=== PATIENT | female | born 1960 | race Caucasian/White ===

== ENCOUNTER → 2017-04-13 | Outpatient (CLI) | payer OTHER | LOC: FIMAGING 15:43 | PROVIDERS: ATTEND Obstetrics & Gynecology Gynecology | DX: Z12.31 Encounter for screening mammogram for malignant neoplasm of breast (principal); Z80.3 Family history of malignant neoplasm of breast | CPT/HCPCS: G0202 ==

== ENCOUNTER 2018-09-22 07:15 | Observation (INO) | payer OTHER ==
[2018-09-15 14:36] LABS: PLATELET COUNT 220 10^3/uL (150-400)
--- NOTE | 2018-09-22 07:04 | PDHPUP ---
History & Physical Update H&P update statement: This history and physical update is based on an assessment of the patient which was completed after admission or registration (within 24 hours), but prior to the surgery/procedure. H&P update: H&P reviewed & patient examined, no change in patient's condition since H&P completed
[~2018-09-22 07:15] MED LIST: ROPIVACAINE 0.2% 80 MG, EPINEPHrine 0.2 MG, KETOROLAC TROMETHAMINE 30 MG in SYRINGE 0 ML IU ONE; TRANEXAMIC ACID 3,000 MG in NS (SYRINGE) 50 ML IRR ONE
[2018-09-22] MEDS ORDERED: TRANEXAMIC ACID 3,000 MG/50 ML BAG IRR ONE (10:43)
[2018-09-22] MEDS ORDERED: VANCOMYCIN 1 GM VIAL ONE (10:43)
[2018-09-22] MEDS ORDERED: ACETAMINOPHEN 325 MG TAB PO ONE (11:59)
[2018-09-22] MEDS ORDERED: DEXAMETHASONE 4 MG/ML VIAL IVP ONE (11:59)
[2018-09-22] MEDS ORDERED: FAMOTIDINE 20 MG TAB PO ONE (11:59)
[2018-09-22] MEDS ORDERED: ceFAZolin 2 GM/DEXTROSE 100 ML IV ONE (11:59)
[2018-09-22] MEDS ORDERED: LIDOCAINE 1% 2 ML INJ ID PRN (12:01)
[2018-09-22] MEDS ORDERED: LR 1,000 ML IV ONE (12:01)
--- NOTE | 2018-09-22 12:48 | PDANEPAE ---
ANE History of Present Illness right TKA revision ANE Past Medical History - Cardiovascular History Hx Hypertension: Yes Hx Arrhythmias: No Hx Chest Pain: No Hx Coronary Artery / Peripheral Vascular Disease: No Hx CHF / Valvular Disease: No Hx Palpitations: No Cardiovascular History Comment: takes statin - Pulmonary History Hx COPD: No Hx Asthma/Reactive Airway Disease: Yes Hx Recent Upper Respiratory Infection: No Hx Oxygen in Use at Home: No Hx Sleep Apnea: Yes Sleep Apnea Screening Result - Last Documented: Positive Pulmonary History Comment: cpap nightly, RAD well controlled, sleeps soundly - very hard to wake up - Neurologic History Hx Cerebrovascular Accident: No Hx Seizures: No Hx Dementia: No - Endocrine History Hx Diabetes: Yes Endocrine History Comment: hypothyroid - Renal History Hx Renal Disorders: No - Liver History Hx Hepatic Disorders: No - Neurological & Psychiatric Hx Neurological / Psychiatric History Comment: depression med for chronic pain and depression, hx of suicidal depression 07/2008-12/2008 - Cancer History Hx Cancer: Yes Cancer History Comment: cervical squamous cell insitu - Congenital Disorder History Hx Congenital Disorders: No - GI History Hx Gastrointestinal Disorders: Yes Gastrointestinal History Comment: IBS, post jameson diarrhea,. hx fissures, thrombosed hemorrhoid, - Other Health History Other Health History: osteo arthritis,. 2017 fall, tx'd for hip /pelvic rotation - Chronic Pain History Chronic Pain: Yes (right leg) - Surgical History Prior Surgeries: 1976 D&C, 1993 lap jameson, 1996 D&C for squamous cell cancer insitu, 1998 LACEI/BSO/A & P repair, 2006 right knee scope, 2007 right partial knee replacement, 09/2008 manipulation right knee ANE Review of Systems Review of systems is: negative Review of Systems: - Exercise capacity METS (RN): 4 METS ANE Patient History - Allergies Allergies/Adverse Reactions: No Known Allergies Allergy (Unverified 09/15/18 09:12) - Home Medications Home medications: home medication list seen and reviewed Home Medications: Amitriptyline HCl [Elavil 10 mg (*)] 10 mg PO HS 09/15/18 [Last Taken 09/21/18 21:30] Atorvastatin Calcium [Lipitor 10 mg (*)] 10 mg PO HS 09/15/18 [Last Taken 21:30] Azelaic Acid [Finacea] 1 daya TP DAILY 09/15/18 [Last Taken 08/14/18] Beta-Carotene(A) W-C & E/Min [Ocuvite] 1 tab PO DAILY 09/15/18 [Last Taken 09/08] Doxycycline Hyclate [Vibramycin 100 MG (*)] 100 mg PO DAILY 09/15/18 [Last Taken 09/22/18 09:00] Estradiol [Estradiol 0.5 MG (RX)] 0.25 mg PO DAILY 09/15/18 [Last Taken 09/15/18 ] Gabapentin [Neurontin 300 MG (*)] 300 mg PO TID 09/15/18 [Last Taken 09/22/18 09 :00] Herbals/Supplements -Info Only 1 ea PO DAILY 09/15/18 [Last Taken 09/08/18] Hyoscyamine Sulfate [Hyomax-Sr 0.375 mg (*)] 0.375 - 0.75 mg PO DAILY 09/15/18 [ Last Taken 09/22/18 07:00] Levothyroxine [Synthroid 100 mcg (*)] 100 mcg PO DAILY06 09/15/18 [Last Taken 07:00] Multivitamins [Multivitamin (*)] 1 each PO DAILY 09/15/18 [Last Taken 09/08/18] Naproxen Sodium [Aleve 220 MG (*)] 220 mg PO HS PRN 09/15/18 [Last Taken ] Naproxen Sodium [Aleve 220 MG (*)] 440 mg PO DAILY 09/15/18 [Last Taken 09/04/18 ] Nebivolol HCl [Bystolic 5 mg (*)] 5 mg PO HS 09/15/18 [Last Taken 09/21/18 21:30 ] Dumas-3 Fatty Acids [Fish Oil 1000 mg (*)] 1,000 mg PO DAILY 09/15/18 [Last Taken 09/08/18] Omeprazole 20 mg PO DAILY PRN 09/15/18 [Last Taken 09/22/18 09:00] Ranitidine HCl 150 mg PO DAILY 09/15/18 [Last Taken 09/22/18 09:00] Zolpidem Tartrate [Ambien 5MG (*)] 5 mg PO HS PRN 09/15/18 [Last Taken 09/21/18 21:30] - NPO status NPO Since - Liquids (Date): 09/22/18 NPO Since - Liquids (Time): 11:00 NPO Since - Solids (Date): 09/21/18 NPO Since - Solids (Time): 17:30 - Anes Hx Anes Hx: no prior problems - Smoking Hx Smoking Status: Never smoked - Family Anes Hx Family Hx Anesthesia Complications: none ANE Labs/Vital Signs - Labs Result Diagrams: 09/15/18 14:24 - Vital Signs Blood Pressure: 135/86 Heart Rate: 73 Respiratory Rate: 16 O2 Sat (%): 93 Height: 160.66 cm Weight: 86.636 kg ANE Physical Exam - Airway Neck exam: FROM Mallampati Score: Class 2 Mouth exam: normal dental/mouth exam - Pulmonary Pulmonary: no respiratory distress - Cardiovascular Cardiovascular: regular rate and rhythym - ASA Status ASA Status: II ANE Anesthesia Plan Anesthesia Plan: spinal Regional Anesthesia: single shot NB, adductor canal FNB Urgent/Emergent Case: Eleazar resendez completed preop but documented later for safe timely pt care
[2018-09-22] MEDS ORDERED: PROPOFOL/EMULSION 500 MG/50 ML BOTTLE IV ONE ×2 (12:55→15:07)
[2018-09-22] MEDS ORDERED: LIDOCAINE 2% 5 ML SDV ONE (12:57)
[2018-09-22] MEDS ORDERED: MIDAZOLAM 2 MG/2 ML VIAL IVP ONE (14:06)
[2018-09-22] MEDS ORDERED: ROPIVACAINE HCL 150 MG/30 ML INJ ONE (14:09)
[2018-09-22] MEDS ORDERED: BUPIVACAINE/DEXTROSE 7.5MG/ML 2 ML SPINAL AMP SP ONE (14:09)
--- NOTE | 2018-09-22 14:12 | POSTANESTH ---
Post Anesthetic Evaluation Cardiovascular Status: Normal, Stable Respiratory Status: Normal, Stable Level of Consciousness/Mental Status: Can Participate in Eval, Alert and Oriented Pain Control: Adequate, Prn Tx Ordered Nausea/Vomiting Control: Adequate, Prn Tx Ordered Complications Possibly Related to Anesthesia: None Noted
[2018-09-22] MEDS ORDERED: NALOXONE HCL 0.4 MG/ML INJ IVP PRN (14:56)
[2018-09-22] MEDS ORDERED: fentaNYL 100 MCG/2 ML INJ IVP PRN (14:56)
[2018-09-22] MEDS ORDERED: ONDANSETRON 4 MG/2 ML VIAL IVP PRN ×2 (14:56→16:35)
[2018-09-22] MEDS ORDERED: ACETAMINOPHEN 500 MG TAB PO PRN (14:56)
[2018-09-22] MEDS ORDERED: LR 500 ML IV PRN (14:56)
[2018-09-22] MEDS ORDERED: HYDROmorphONE/DILAUDID 2 MG/ML INJ IVP PRN (14:56)
[2018-09-22] MEDS ORDERED: ALBUTEROL 3 ML DEYVIAL IH PRN (14:56)
[2018-09-22] MEDS ORDERED: oxyCODONE IR 5 MG TAB PO PRN (14:56)
[2018-09-22] MEDS ORDERED: fentaNYL 100 MCG/2 ML INJ ONE ×2 (15:03→16:33)
[2018-09-22] MEDS ORDERED: PROPOFOL 200 MG/20 ML VIAL ONE (15:59)
[2018-09-22] MEDS ORDERED: diphenhydrAMINE 25 MG CAP PO PRN (16:35)
[2018-09-22] MEDS ORDERED: POLYETHYLENE GLYCOL 3350 17 GM PKT PO PRN (16:35)
[2018-09-22] MEDS ORDERED: DIPHENOXYLATE/ATROPINE LOMOTIL 1 TAB PO PRN (16:35)
[2018-09-22] MEDS ORDERED: TEMAZEPAM 15 MG CAP PO PRN (16:35)
[2018-09-22] MEDS ORDERED: MAGNESIUM HYDROXIDE 30 ML UDCUP PO PRN (16:35)
[2018-09-22] MEDS ORDERED: ONDANSETRON DISINTEGRATING 4 MG TAB PO PRN (16:35)
[2018-09-22] MEDS ORDERED: PROMETHAZINE HCL 25 MG/ML INJ IVP PRN (16:35)
[2018-09-22] MEDS ORDERED: METOCLOPRAMIDE 10 MG/2 ML VIAL IVP PRN (16:35)
[2018-09-22] MEDS ORDERED: BISACODYL 10 MG SUPP PR PRN (16:35)
[2018-09-22] MEDS ORDERED: PROMETHAZINE HCL 25 MG SUPPR PR PRN (16:35)
[2018-09-22] MEDS ORDERED: LACTULOSE 20 GM/30 ML UDCUP PO PRN (16:35)
--- NOTE | 2018-09-22 16:35 | POSTOPPROG ---
Post Op Note Date of Operation: 09/22/18 Surgeon: [employer] Operator: felicia gama PA-C and Treva Fisher PA-C Anesthesiologist: dr. prado Anesthesia: Spinal, Other (Specify) (adductor canal block) Pre-op Diagnosis: painful right bicompartmental knee arthroplasty and broken tibial component Post-op Diagnosis: same Indication: Right knee pain and broken implant Procedure: R TKA, removed femoral and tibial components Findings: broken tibial plate Inf/Abcess present in the surg proc area at time of surgery?: No EBL: 50-100
[2018-09-22] MEDS ORDERED: ZOLPIDEM TARTRATE 5 MG TAB PO PRN (16:36)
[2018-09-22] MEDS ORDERED: HYDROmorphONE/DILAUDID 2 MG/ML INJ ONE (16:49)
[2018-09-22] MEDS ORDERED: HYDROCODONE/APAP 5/325 TAB ONE ×2 (16:53→17:41)
[2018-09-22] MEDS ORDERED: LR 1,000 ML IV SCH (17:00)
[2018-09-22] MEDS: HYDROCODONE/APAP 5/325 TAB PO PRN ×2 (17:11→17:43)
[2018-09-22] MEDS ORDERED: CEPACOL LOZENGE PO ONE ×2 (17:19→21:08)
[2018-09-22] MEDS: CYCLOBENZAPRINE 10 MG TAB PO PRN (18:13)
[2018-09-22] MEDS: ACETAMINOPHEN 325 MG TAB PO SCH ×2 (19:55→23:17)
[2018-09-22] MEDS: SENNOSIDES/DOCUSATE SODIUM TAB PO SCH (19:56)
[2018-09-22] MEDS: ASPIRIN 81 MG CHEWABLE TAB PO SCH (19:56)
[2018-09-22] MEDS ORDERED: NEBIVOLOL HCL 5 MG TAB PO SCH (21:00)
[2018-09-22] MEDS ORDERED: ATORVASTATIN CALCIUM 10 MG TAB PO SCH (21:00)
[2018-09-22] MEDS ORDERED: AMITRIPTYLINE HCL 10 MG TAB PO SCH (21:00)
[2018-09-22] MEDS: oxyCODONE IR 5 MG TAB PO PRN (22:18)
[2018-09-22] MEDS: GABAPENTIN 300 MG CAP PO SCH (22:18)
[2018-09-22] MEDS: ceFAZolin 2 GM/DEXTROSE 100 ML IV SCH (22:18)
[2018-09-23] MEDS: CYCLOBENZAPRINE 10 MG TAB PO PRN ×2 (04:18→12:08)
[2018-09-23] MEDS: oxyCODONE IR 5 MG TAB PO PRN ×2 (04:18→09:47)
[2018-09-23] MEDS: ceFAZolin 2 GM/DEXTROSE 100 ML IV SCH (05:54)
[2018-09-23] MEDS: ACETAMINOPHEN 325 MG TAB PO SCH (05:55)
[2018-09-23] MEDS ORDERED: HYOSCYAMINE SULFATE 0.375 MG TAB.SR PO SCH (06:00)
[2018-09-23] MEDS ORDERED: LEVOTHYROXINE 100 MCG TAB PO SCH (06:00)
[2018-09-23] MEDS: GABAPENTIN 300 MG CAP PO SCH (07:59)
[2018-09-23] MEDS: SENNOSIDES/DOCUSATE SODIUM TAB PO SCH (07:59)
[2018-09-23] MEDS: ASPIRIN 81 MG CHEWABLE TAB PO SCH (07:59)
--- NOTE | 2018-09-23 08:48 | SOAPPROG ---
SOAP Progress Note Assessment/Plan: Assessment: Patient is doing well POD 1 s/p R TKA revision Pain management: pain is well controlled on oral pain meds. VTE ppx: recommend aspirin 81 mg BID for 4 weeks, cont DANIELLE and SCDs D/c planning: Patient has done better than anticipated and would like to be discharged to home today. Patient must be released from PT before discharge to home. muscle spasms: patient states flexeril alleviated. sent script via our EMR system Plan: 09/23/18 08:46 09/23/18 08:47 Subjective: patient is doing well, denies SOB, chest pain and N/V Objective: Vital Signs Temp Pulse Resp BP Pulse Ox 36.6 C 58 L 16 113/65 94 09/23/18 08:00 09/23/18 08:00 09/23/18 08:00 09/23/18 08:00 09/23/18 08:00 Laboratory Results 09/23/18 04:36 09/22/18 09/23/18 09/24/18 05:59 05:59 05:59 Intake Total 2500 Output Total 750 Balance 1750 RLE: incision dressing is clean and dry, NV, +pf/df ICD10 Worksheet Patient Problems: Problems Problem Status Onset Primary localized osteoarthritis of right knee Acute
[2018-09-23] MEDS ORDERED: DOXYCYCLINE HYCLATE 100 MG CAP/TAB PO SCH (09:00)
[2018-09-23] MEDS ORDERED: FAMOTIDINE 20 MG TAB PO SCH (09:00)
[2018-09-23] MEDS ORDERED: PANTOPRAZOLE SODIUM 40 MG TAB PO PRN (09:00)
--- NOTE | 2018-09-23 09:45 | GOP ---
DATE OF OPERATION: 09/22/2018 SURGEON: Monica Ulloa MD COSTUMER ASSISTANT: Ivet Ulloa, PETER PREOPERATIVE DIAGNOSIS: Right knee failed knee arthroplasty. POSTOPERATIVE DIAGNOSIS: Right knee failed knee arthroplasty. PROCEDURE PERFORMED: Right knee revision total knee arthroplasty, 2 component. FINDINGS: ESTIMATED BLOOD LOSS: 30 cc. INDICATIONS: The patient is a 58-year-old female, who underwent a Journey Deuce knee replacement. This had failed the fracture of the tibial component. Discussion of risks and benefits was had with the patient and informed consent was obtained. DESCRIPTION OF PROCEDURE: The patient was identified in the preoperative holding area. Her right lower extremity was marked. She was then brought back to the operating room. After induction of anesthesia, a nonsterile tourniquet was placed on the right upper thigh. She was then prepped and draped in the usual sterile fashion. A time-out was taken confirming patient, laterality of the procedure, allergies, antibiotic status and implant availability. We then started through her prior incision, dissected down and made a medial parapatellar arthrotomy. Identified the prior components. There was a small amount of metallosis which was removed around the synovium. We removed the plastic and identified the fractured tibial base plate. This was then removed. We removed the femoral component with a series of osteotomes and minimal bone loss. We made our distal femoral cut, measuring 8 mm off the lateral femoral condyle. It was noted that we would need an augment on the medial femoral side. We made our 4:1 cutting block for a size 3. After sizing to a size 3 for the femoral size, we then turned out attention to the tibia. We made our tibial cut with 9 mm based on the lateral tibial condyle. This gave us good removal of the remaining medial cement, so we had a nice flat tibial surface. We removed the meniscus from the lateral side. Injection was made in the posterior capsule. We then sized this to a size 2 for the tibia. We did our box cut for the femoral side, trialed with the medial distal femoral augment. This gave us excellent stability and range of motion. We then removed the trials. The incision was copiously irrigated. We cemented in a size 2 universal baseplate Triathlon, with a size 3 posterior stabilized femoral component with a 5 mm distal femoral medial augment. The 9 mm polyethylene gave excellent stability and range of motion. We then copiously irrigated the incision and closed the incision in layers. The patient was then placed in to a sterile dressing and brought to PACU in good condition. The plan will be to admit the patient to the orthopedic service. /[id number]/MODL MTDD
[2018-09-23 11:55] VITALS: BP 124/65
--- NOTE | 2018-09-25 10:58 | GDS ---
ADMISSION DIAGNOSIS: Painful right total knee arthroplasty. DISCHARGE DIAGNOSIS: Painful right total knee arthroplasty. PROCEDURE: Revision of a failed right total knee arthroplasty. VTE PROPHYLAXIS: Recommend aspirin 81 mg twice daily for 4 weeks postoperative. BRIEF DESCRIPTION OF HOSPITAL STAY: Patient was admitted for an elective joint arthroplasty. The pa rhoda tolerated the procedure well and has passed physical therapy. The patient was given appropriat e antibiotic prophylaxis and venous thromboembolism prophylaxis. The patient's pain was well control led on oral pain medication, patient was holding down food, and had urinated. Decision was made to d ischarge the patient. The patient was given post-operative prescriptions pre-operatively. PLAN: To follow up with Dr. Ulloa at [facility] in 3 weeks. /[id number]/MODL
== END 2018-09-23 13:02 | disposition home or self-care (01) ==
LOC: EDSTATUS 08:15 → INTOOBSV 11:51 → F3N 11:51
PROVIDERS: ADMIT Orthopaedic Surgery; ATTEND Orthopaedic Surgery
PROC: 0SWC0JZ Revision of Synthetic Substitute in Right Knee Joint, Open Approach (ICD-10-PCS; principal; 2018-09-22 14:00)
DX: T84.012A Broken internal right knee prosthesis, initial encounter (principal); T84.84XA Pain due to internal orthopedic prosthetic devices, implants and grafts, initial encounter; E03.9 Hypothyroidism, unspecified; F32.9 Major depressive disorder, single episode, unspecified
CPT/HCPCS: 27487; 73560; 97161; G0378; C1713; J0171; J0690; J1100; J1170; J1885; J2250; J2704; J2795; J3010; J3370

== ENCOUNTER → 2018-12-27 | Outpatient (CLI) | payer OTHER | LOC: FIMAGING 09:50 | PROVIDERS: ATTEND Physician Assistant | DX: M51.36 Other intervertebral disc degeneration, lumbar region (principal); M46.96 Unspecified inflammatory spondylopathy, lumbar region; M46.97 Unspecified inflammatory spondylopathy, lumbosacral region; M41.86 Other forms of scoliosis, lumbar region ==

== ENCOUNTER → 2019-01-04 | Outpatient (CLI) | payer OTHER | LOC: FIMAGING 19:22 | PROVIDERS: ATTEND Physician Assistant | DX: M51.36 Other intervertebral disc degeneration, lumbar region (principal); M51.37 Other intervertebral disc degeneration, lumbosacral region; M46.96 Unspecified inflammatory spondylopathy, lumbar region; M46.97 Unspecified inflammatory spondylopathy, lumbosacral region ==